=== PATIENT | female | born 1985 | race Caucasian/White ===

== ENCOUNTER → 2016-08-03 | Outpatient (CLI) | payer BC ==
[~2016-08-03] MED LIST: MOTRIN800 MG PO; Motrin PO; PERCOCET 5/31 TABLET PO; PRENATAL TABLE1 EAC3 PO; Percocet 5/325,Endoc PO
== END | disposition home or self-care (01) ==
LOC: CDC 14:00
DX: Z01.810 Encounter for preprocedural cardiovascular examination (principal); C50.919 Malignant neoplasm of unspecified site of unspecified female breast; R94.31 Abnormal electrocardiogram [ECG] [EKG]
CPT/HCPCS: 93000

== ENCOUNTER 2016-09-12 09:44 | Day surgery (SDC) | payer BC ==
[~2016-09-12] VITALS: Ht 154.9 cm; Wt 57.0 kg
[~2016-09-12 09:44] MED LIST changes: +DAILY VITAMIN1 EAC4 PO; +JUNEL FE 1/21 TABLET PO; +ZOLOFT25 MG PO
== END 2016-09-12 12:25 | disposition home or self-care (01) ==
LOC: CATH 09:44
DX: I87.8 Other specified disorders of veins (principal); C50.919 Malignant neoplasm of unspecified site of unspecified female breast; Z82.49 Family history of ischemic heart disease and other diseases of the circulatory system; Z83.3 Family history of diabetes mellitus; Z84.1 Family history of disorders of kidney and ureter
CPT/HCPCS: C1752; C1894; J0690; J1644; J2250; J3010; S0020

== ENCOUNTER 2016-12-17 10:09 | Inpatient (IN) | payer BC ==
[~2016-12-17] VITALS: Ht 154.9 cm; Wt 61.0 kg
[2016-12-17 11:16] LABS: EOSINOPHIL (%) 0.1 % (0-5); IMMATURE GRANULOCYTE (%) 0.4 % (0.0-0.7); INSTRUMENT ABS NEUTROPHIL CT 7.2 K/uL; LYMPHOCYTE COUNT 0.3 K/uL (1.0-2.8); MCH 31.2 PG (29.0-34.0); MCV 94.6 FL (83-99); MEAN PLAT.VOLUME 10.6 uM^3 (9.5-12.4); MONOCYTE (%) 2.1 % (3-12); MONOCYTE COUNT 0.2 K/uL (0-0.8); NEUTROPHIL (%) 93.3 % (45-76); NEUTROPHIL COUNT 7.2 K/uL (1.8-6.4); PLATELET COUNT 195 K/uL (156-360); RBC DIS.WIDTH-CV 12.7 % (11.8-14.6); RBC DIS.WIDTH-SD 44.5 % (39-53); RED BLOOD COUNT 3.17 M/uL (3.80-5.20); WHITE BLOOD COUNT 7.7 K/uL (4.1-10.2)
[2016-12-17 11:27] LABS: CHLORIDE 106 mEq/L (99-109); POTASSIUM 3.9 mEq/L (3.7-5.4); SODIUM 139 mEq/L (136-147)
[2016-12-17 11:29] LABS: GLUCOSE 129 mg/dL (70-99)
[2016-12-17 11:30] LABS: ANION GAP 9 MEQ/L (2-14)
[2016-12-17 11:31] LABS: TOTAL BILIRUBIN 0.7 mg/dL (0.0-1.0)
[2016-12-17 11:32] LABS: ALKALINE PHOSPHATASE 90 IU/L (3-129)
[2016-12-17 11:33] LABS: GFR ESTIMATE (CALCULATED) > 59 mL/min/
[2016-12-17 11:34] LABS: UREA NITROGEN (BUN) 8 mg/dL (9-23)
[2016-12-17 11:47] LABS: INFLUENZA A VIRAL ANTIGEN NEGATIVE; INFLUENZA B VIRAL ANTIGEN NEGATIVE
[2016-12-17 12:36] LABS: ADD MIUA? YES; BILIRUBIN NEGATIVE; BLOOD SMALL; COLOR YELLOW ((YELLOW)); GLUCOSE (STRIP) NEGATIVE; KETONES NEGATIVE; LEUKOCYTES NEGATIVE; NITRITE NEGATIVE; PROTEIN (STRIP) NEGATIVE; SPECIFIC GRAVITY 1.009 (1.000-1.030); UROBILINOGEN 0.2 MG/DL (0.2-1.0)
[2016-12-17 12:46] LABS: BACTERIA NONE SEEN /HPF; CALCIUM OXALATE CRYSTALS 1+ /HPF; EPITHELIAL CELLS RARE /HPF; MUCUS TRACE /LPF; RED BLOOD CELLS 0-5 /HPF (0-5); UCUL ADDED? NO; WHITE BLOOD CELLS 0-5 /HPF (0-5)
[2016-12-17 22:00] VITALS: BP 105/70
[2016-12-18] VITALS (7 sets, daily range): BP systolic 98–109; BP diastolic 62–68
[2016-12-18 05:52] LABS: HEMATOCRIT 26.4 % (36.0-46.0); MCH 32.1 PG (29.0-34.0); MCHC 33.3 G/DL (30.0-36.0); MCV 96.4 FL (83-99); MEAN PLAT.VOLUME 11.3 uM^3 (9.5-12.4); PLATELET COUNT 170 K/uL (156-360); RBC DIS.WIDTH-SD 45.4 % (39-53); RED BLOOD COUNT 2.74 M/uL (3.80-5.20); WHITE BLOOD COUNT 9.7 K/uL (4.1-10.2)
[2016-12-18 06:19] LABS: ANION GAP 8 MEQ/L (2-14); CHLORIDE 107 MEQ/L (99-109); GFR ESTIMATE (CALCULATED) > 59 mL/min/; GLUCOSE 126 mg/dL (70-99); POTASSIUM 3.9 MEQ/L (3.7-5.4); SAMPLE HEMOLYSIS CHECK 0; SAMPLE ICTERIC CHECK 0; SAMPLE LIPEMIA CHECK 0; SODIUM 137 MEQ/L (136-147); UREA NITROGEN (BUN) 7 mg/dL (9-23)
[2016-12-18 15:28] LABS: FERRITIN 377 NG/ML (10-291)
[2016-12-18 19:15] LABS: IRON 10 MCG/DL (35-150)
[2016-12-19 01:18] LABS: TROP-I INTERPRETATION NEGATIVE; TROPONIN-I 0.06 ng/mL (0.0-0.30)
[2016-12-19 03:23] VITALS: BP 98/58
[2016-12-19 07:24] LABS: HEMATOCRIT 24.4 % (36.0-46.0); MCH 32.5 PG (29.0-34.0); MCHC 33.2 G/DL (30.0-36.0); MEAN PLAT.VOLUME 11.3 uM^3 (9.5-12.4); PLATELET COUNT 173 K/uL (156-360); RBC DIS.WIDTH-CV 12.7 % (11.8-14.6); RBC DIS.WIDTH-SD 45.7 % (39-53); RED BLOOD COUNT 2.49 M/uL (3.80-5.20); WHITE BLOOD COUNT 2.3 K/uL (4.1-10.2)
[2016-12-19 07:47] VITALS: BP 108/70
[2016-12-19 07:47] LABS: TROP-I INTERPRETATION NEGATIVE; TROPONIN-I 0.07 ng/mL (0.0-0.30)
[2016-12-19 07:48] LABS: ANION GAP 6 MEQ/L (2-14); CHLORIDE 111 MEQ/L (99-109); GFR ESTIMATE (CALCULATED) > 59 mL/min/; SAMPLE HEMOLYSIS CHECK 0; SAMPLE ICTERIC CHECK 0; SAMPLE LIPEMIA CHECK 0; SODIUM 140 MEQ/L (136-147); UREA NITROGEN (BUN) 11 mg/dL (9-23)
[2016-12-19 07:59] LABS: GLUCOSE 90 mg/dL (70-99)
[2016-12-19 12:01] VITALS: BP 117/79
[2016-12-19 13:10] LABS: TROP-I INTERPRETATION NEGATIVE; TROPONIN-I 0.07 ng/mL (0.0-0.30)
[2016-12-19 16:00] VITALS: BP 108/70
[2016-12-19 23:51] VITALS: BP 100/57; BP 124/61
[2016-12-20 07:38] VITALS: BP 96/56
[2016-12-20 15:05] VITALS: BP 99/61
[2016-12-21 00:18] VITALS: BP 101/55
[2016-12-21 01:11] LABS: HEMATOCRIT 25.1 % (36.0-46.0); MCH 31.6 PG (29.0-34.0); MCHC 33.1 G/DL (30.0-36.0); MCV 95.4 FL (83-99); MEAN PLAT.VOLUME 10.5 uM^3 (9.5-12.4); RBC DIS.WIDTH-CV 12.4 % (11.8-14.6); RBC DIS.WIDTH-SD 43.6 % (39-53); RED BLOOD COUNT 2.63 M/uL (3.80-5.20); WHITE BLOOD COUNT 2.6 K/uL (4.1-10.2)
[2016-12-21 01:13] LABS: PLATELET COUNT 245 K/uL (156-360)
[2016-12-21 07:46] VITALS: BP 102/56
[2016-12-21] MEDS ORDERED: FAMOTIDINE20 MG PO (08:20)
[2016-12-21] MEDS ORDERED: FERROUS SULFAT325 MG PO (08:20)
[2016-12-21] MEDS ORDERED: TYLENOL REGULA325 MG PO (08:20)
[2016-12-21] MEDS ORDERED: ZOFRAN4 MG PO (08:20)
[2016-12-21 11:05] LABS: LYME DISEASE SEROLOGY SCREEN NEGATIVE (NEGATIVE)
== END 2016-12-21 11:27 | disposition home or self-care (01) | DRG 599 ==
LOC: EME 10:09 → 5EAST 19:56 → EDOF 19:56 → 4EAST 21:29 → 5EAST 12-18 14:41
PROVIDERS: Emergency Medicine; Hospitalist; Internal Medicine
DX: C50.911 Malignant neoplasm of unspecified site of right female breast (principal); E86.0 Dehydration; F32.9 Major depressive disorder, single episode, unspecified; D18.09 Hemangioma of other sites; B34.9 Viral infection, unspecified; D63.0 Anemia in neoplastic disease; E05.90 Thyrotoxicosis, unspecified without thyrotoxic crisis or storm; R50.2 Drug induced fever; T45.1X5A Adverse effect of antineoplastic and immunosuppressive drugs, initial encounter; Z83.3 Family history of diabetes mellitus; Z87.442 Personal history of urinary calculi; Z90.13 Acquired absence of bilateral breasts and nipples; R51 Headache; M54.2 Cervicalgia; R00.0 Tachycardia, unspecified; R05 Cough; G89.29 Other chronic pain; Z79.899 Other long term (current) drug therapy; R50.81 Fever presenting with conditions classified elsewhere
CPT/HCPCS: 71010; 71275; 80048; 80053; 80202; 81003; 82607; 82728; 82746; 83540; 83605; 84443; 84466; 84484; 85025; 85027; 86618; 87040; 87502; 93005; 93306; 99281; 99285; J0692; J1650; J1885; J2405; J3370; J7030; J7050

== ENCOUNTER 2017-03-26 13:58 | Emergency (ER) | payer BC ==
[~2017-03-26] VITALS: Ht 154.9 cm; Wt 60.7 kg
[~2017-03-26 13:58] MED LIST changes: +FAMOTIDINE20 MG PO; +FERROUS SULFAT325 MG PO; +TYLENOL REGULA325 MG PO; +ZOFRAN4 MG PO
[2017-03-26 14:48] LABS: EOSINOPHIL (%) 0 % (0-5); HEMATOCRIT 39.3 % (36.0-46.0); IMMATURE GRANULOCYTE (%) 0.4 % (0.0-0.7); INSTRUMENT ABS NEUTROPHIL CT 9.2 K/uL; LYMPHOCYTE COUNT 0.3 K/uL (1.0-2.8); MCH 29.7 PG (29.0-34.0); MCHC 33.3 G/DL (30.0-36.0); MCV 89.1 FL (83-99); MEAN PLAT.VOLUME 10.6 uM^3 (9.5-12.4); MONOCYTE (%) 5.3 % (3-12); MONOCYTE COUNT 0.5 K/uL (0-0.8); NEUTROPHIL (%) 91.3 % (45-76); NEUTROPHIL COUNT 9.2 K/uL (1.8-6.4); PLATELET COUNT 189 K/uL (156-360); RBC DIS.WIDTH-CV 13.6 % (11.8-14.6); RBC DIS.WIDTH-SD 44.1 % (39-53); RED BLOOD COUNT 4.41 M/uL (3.80-5.20)
[2017-03-26 14:55] LABS: INTER. NORMALIZED RATIO 1.1
[2017-03-26 14:57] LABS: PTT 29.3 SEC (25-37)
[2017-03-26 14:58] LABS: CHLORIDE 103 mEq/L (99-109); SODIUM 138 mEq/L (136-147)
[2017-03-26 14:59] LABS: MAGNESIUM 2.2 mg/dL (1.3-2.7)
[2017-03-26 15:00] LABS: GLUCOSE 104 mg/dL (70-99)
[2017-03-26 15:02] LABS: ANION GAP 11 MEQ/L (2-14); TOTAL BILIRUBIN 0.6 mg/dL (0.0-1.0)
[2017-03-26 15:04] LABS: ALKALINE PHOSPHATASE 71 IU/L (3-129); GFR ESTIMATE (CALCULATED) > 59 mL/min/
[2017-03-26 15:05] LABS: UREA NITROGEN (BUN) 17 mg/dL (9-23)
[2017-03-26 15:07] LABS: LIPASE 9 U/L (1.0-51.0)
[2017-03-26 15:10] LABS: TROP-I INTERPRETATION NEGATIVE; TROPONIN-I < 0.01 ng/mL (0.0-0.30)
[2017-03-26 17:44] VITALS: BP 126/79
== END 2017-03-26 17:44 | disposition home or self-care (01) ==
LOC: EME 13:58
PROVIDERS: Emergency Medicine
DX: R11.2 Nausea with vomiting, unspecified (principal); Z85.3 Personal history of malignant neoplasm of breast; Z87.442 Personal history of urinary calculi
CPT/HCPCS: 80053; 81003; 83605; 83690; 83735; 83880; 84484; 85025; 85610; 85730; 99281; 99284; J1200; J2765; J7030

== ENCOUNTER 2017-06-14 06:44 | Day surgery (SDC) | payer BC ==
[~2017-06-14] VITALS: Ht 157.5 cm; Wt 61.3 kg
[~2017-06-14 06:44] MED LIST changes: +ONE DAILY MULT1 EACH PO
[2017-06-14 07:08] VITALS: BP 120/65
[2017-06-14] MEDS ORDERED: MOTRIN800 MG PO (07:29)
[2017-06-14] MEDS ORDERED: PERCOCET 5/31 TABLET PO (07:29)
[2017-06-14 11:53] VITALS: BP 119/82
[2017-06-14 12:53] VITALS: BP 127/76
[2017-06-14 14:27] VITALS: BP 107/59
[2017-06-14 17:30] VITALS: BP 113/66
[2017-06-14 17:50] VITALS: BP 113/66
== END 2017-06-14 17:53 | disposition home or self-care (01) ==
LOC: SDC 06:44
DX: Z40.09 Encounter for prophylactic removal of other organ (principal); Z85.3 Personal history of malignant neoplasm of breast; Z17.0 Estrogen receptor positive status [ER+]; Z92.3 Personal history of irradiation; Z92.21 Personal history of antineoplastic chemotherapy
CPT/HCPCS: 88108; 88307; J0690; J1100; J1170; J1885; J2001; J2405; J2710; J2765; J2795; J3010; J3475; S0020

== ENCOUNTER → 2017-11-17 | Outpatient (CLI) | payer BC ==
[~2017-11-17] MED LIST changes: +FEMARA2.5 MG PO
== END | disposition home or self-care (01) ==
LOC: AMB 10:18
DX: Z45.2 Encounter for adjustment and management of vascular access device (principal); I87.8 Other specified disorders of veins; Z85.3 Personal history of malignant neoplasm of breast; Z92.21 Personal history of antineoplastic chemotherapy